=== PATIENT | male | born 1980 | race Caucasian/White ===

== ENCOUNTER 2021-10-16 11:14 | Emergency (ER) | payer OTHER, SELFPAY ==
--- NOTE | ~2021-10-16 | XR_ITS ---
XR abdomen/kub 1V DATE: 10/16/2021 12:09 INDICATION: Groin pain TECHNIQUE: AP view of the abdomen and pelvis COMPARISON: None FINDINGS: No urinary tract calcified calculus is evident. No visceromegaly is detected. There is no evidence of bowel obstruction. Included skeletal structures are unremarkable. IMPRESSION: No significant abnormality Reviewed, dictated and finalized at [facility]. Reviewed, dictated and finalized at [facility]. IMPRESSION: No significant abnormality
[2021-10-16 11:33] VITALS: BP 114/72; PULSE 64; RESP 16; TEMP 37.1; O2SAT 99
--- NOTE | 2021-10-16 12:31 | ED.MALEGU ---
HPI - Male Genitourinary General Chief complaint: Urogenital-Male Stated complaint: UTI Time Seen by Provider: 10/16/21 12:32 Source: patient Mode of arrival: ambulatory Limitations: no limitations History of Present Illness HPI Narrative: 41-year-old male presents with complaint of lower abdominal pain to left side, low back pain and sometimes radiation to groin or testicles for the past 3 to 4 weeks. Reports that pain is intermittent. Does not feel that pain is related to lifting, pushing. Reports that he sits a lot at work. Does notice that pain is worse the more and water that he drinks. Denies nausea vomiting diarrhea. Is having normal bowel movements. No fever chills. No concern for STI. No penile discharge. No swelling to testicles. Denies bulging to groin or testicles. Currently is having some left lower abdominal pain. No history of kidney stones. Did call his PCP who was not able to see him yesterday but told him to come to an urgent care for a urinary sample. Patient has outpatient labs ordered from his PCP that he plans to have done tomorrow. He plans to follow-up with his PCP for further evaluation if urinary test is negative. All systems reviewed and negative except as noted above. Related Data Home Medications Medication Instructions Recorded Confirmed No Home Medications 10/16/21 10/16/21 Allergies Allergy/AdvReac Type Severity Reaction Status Date / Time No Known Allergies Allergy Verified 10/16/21 12:33 Review of Systems Review of Systems: CONSTITUTIONAL: Denies fever, chills, or sweats. EYES: Denies visual changes, redness, or discharge. ENT: Denies rhinorrhea, congestion, sore throat, or otalgia. CARDIOVASCULAR: Denies chest pain, palpitations, or edema. RESPIRATORY: Denies cough or dyspnea. GASTROINTESTINAL: Reports abdominal pain. Denies nausea, vomiting, or diarrhea. GENITOURINARY: Denies dysuria or hematuria. Reports intermittent groin and testicular pain. SKIN: Denies rash or itching. MUSCULOSKELETAL: Reports low back pain. Denies joint pain, or myalgia. NEUROLOGIC: Denies headache, numbness, or weakness. PSYCHIATRIC: Denies anxiety or depression. All other systems reviewed are negative, except as documented in HPI. [facility] Comments At time of signature, agree with nursing past medical, surgical, social and family history. There is no relevant family history pertinent to the presenting complaint. Exam Narrative: GENERAL: This is a well-nourished, well-developed patient, in no apparent distress. HEAD: normocephalic, atraumatic. EYES: PERRL. Sclera clear/white. Vision is grossly intact. EARS: External ears normal NOSE: External nose normal NECK: Neck supple, non-tender without lymphadenopathy, masses or thyromegaly. CARDIOVASCULAR: Regular rate and rhythm without murmurs, gallops, or rubs. RESPIRATORY: Clear to auscultation. Breath sounds equal bilaterally. No wheezes, rales, or rhonchi. GASTROINTESTINAL: Abdomen soft, nondistended. Left lower quadrant pain on palpation. Bowel sounds are active. No hepato-splenomegaly, or palpable masses. No guarding. SKIN: warm, Dry, intact with no suspicious lesions or rash, good texture and turgor. NEURO: awake, alert, and oriented to person, place and time. There were no obvious focal neurologic abnormalities. EXTREMITIES: Normal range of motion to all extremities. BACK: Nontender without deformity. No CVA tenderness. Course Course Level of Care: Express Care Visit Vital Signs Vital signs: Vital Signs Temperature 37.1 C 10/16/21 11:33 Pulse Rate 64 10/16/21 11:33 Respiratory Rate 16 10/16/21 11:33 Blood Pressure 114/72 10/16/21 11:33 Pulse Oximetry 99 10/16/21 11:33 Temperature 37.1 C 10/16/21 11:33 Pulse Rate 64 10/16/21 11:33 Respiratory Rate 16 10/16/21 11:33 Blood Pressure 114/72 10/16/21 11:33 Pulse Oximetry 99 10/16/21 11:33 Reviewed MDM - Male Genitourinary MDM Narrative Medical deci
== END 2021-10-16 12:42 | disposition home or self-care (01) ==
PROVIDERS: Emergency Provider Nurse Practitioner Family
DX: R10.32 Left lower quadrant pain (principal)
CPT/HCPCS: 74018; 81003; 99203; G0463

== ENCOUNTER 2021-10-25 08:32 | Outpatient (CLI) | payer OTHER, SELFPAY ==
[2021-10-25 09:20] LABS: Basophils Percent Auto 0.4 % (0.2-1.2); Eosinophils Absolute Auto 0.2 K/mm3 (0-0.3); Eosinophils Percent Auto 2.8 % (0-4.4); Hematocrit 41.9 % (42.0-52.0); Hemoglobin 14.8 g/dL (14.0-18.0); Immature Granulocyte Percent A 1.5 % (0-0.5); Lymphocytes Absolute Auto 1.99 K/mm3 (0.9-3.2); Lymphocytes Percent Auto 29.1 % (18.3-44.2); Mean Corpuscular HGB Conc 35.3 g/dl (32-36); Mean Platelet Volume 10.1 fl (7.4-10.4); Monocytes Absolute Auto 0.7 K/mm3 (0.1-0.6); Monocytes Percent Auto 9.5 % (2.6-8.5); Neutrophils Absolute Auto 3.9 K/mm3 (1.3-6.7); Neutrophils Percent Auto 56.7 % (45.5-73.1); Platelet Count Result 251 k/mm3 (150-375); Red Blood Count 4.93 M/mm3 (4.6-6.20); Red Cell Distribution Width 12.7 % (11.5-14.5); White Blood Count 6.9 K/mm3 (4.5-10.0)
[2021-10-25 09:30] LABS: Alanine Aminotransferase 26 U/L (6-50); Alkaline Phosphatase 70 U/L (38-126); Anion Gap 5 mmol/L (8-16); Aspartate Amino Transferase 26 U/L (17-59); Bilirubin,Total 0.6 mg/dL (0.2-1.3); Blood Urea Nitrogen 16 mg/dL (9-20); Calcium 8.5 mg/dL (8.4-10.2); Carbon Dioxide 32 mmol/L (22-30); Chloride 104 mmol/L (98-107); Cholesterol 190 mg/dL (0-200); Estimated Glomerular Filt Rate > 60; Glucose 96 mg/dL (65-110); HDL Direct 41 mg/dL; Potassium 3.8 mmol/L (3.4-5.0); Sodium 141 mmol/L (137-145); Triglycerides 238 mg/dL (<150)
[2021-10-25 09:41] LABS: LDL Cholesterol Direct 91 mg/dL
[2021-10-25 10:09] LABS: Vitamin D 25 Hydroxy 20.3 ng/mL
== END 2021-10-25 08:33 | disposition home or self-care (01) ==
PROVIDERS: PCP Internal Medicine; Visit Provider Internal Medicine
DX: Z00.00 Encounter for general adult medical examination without abnormal findings (principal)
CPT/HCPCS: 36415; 80053; 80061; 82306; 84443; 85025